=== PATIENT | female | born 1995 | race Caucasian/White ===

== ENCOUNTER 2016-12-21 23:35 | Emergency (ER) | payer SELFPAY ==
[~2016-12-21] VITALS: Ht 162.6 cm; Wt 92.1 kg
[~2016-12-21 23:35] MED LIST: FLUT12AE2 IH; MONT10TA9 PO; VENTOLIN HFA8 GM IH
[2016-12-21 23:45] VITALS: BP 104/54
[2016-12-22] MEDS ORDERED: FLUORESCEIN OPHTH TEST STRIP. ONE (00:42)
[2016-12-22] MEDS ORDERED: PROPARACAINE 0.5% OPHTH SOLUTION 15ML BOTTLE. ONE (00:43)
[2016-12-22] MEDS ORDERED: AZITHROMYCIN 250 MG TABLET. ONE (00:55)
[2016-12-22] MEDS ORDERED: ERYTHROMYCIN 0.5% OPHTH OINTMENT 1GM TUBE. ONE (00:56)
[2016-12-22] MEDS ORDERED: ERYTHROMYCIN 0.5% OPHTH OINTMENT 1GM TUBE. OS ONE ×2 (01:00→01:15)
[2016-12-22] MEDS ORDERED: ERYT1OIN6 LEFTEYE (01:10)
--- NOTE | 2016-12-22 01:10 | PHYS DOC ---
Past Medical History Past Medical History: Anxiety, Asthma, Other Additional Past Medical Histor: ADHD, BIPOLAR, PERSONALITY DISORDER Past Surgical History: Tonsillectomy Alcohol Use: Occasionally Drug Use: None Adult General Chief Complaint Chief Complaint: EYE PROBLEMS HPI HPI Patient is a 21 year old female who presents with complaint of left eye redness and swelling. Patient states that her symptoms started yesterday. Patient states that she was scratched twice in her left eye by her dog. Patient states that she started getting thick yellow drainage from the left eye starting today. Patient states that she is having burning pain in the eye and has had blurry vision. Patient denies loss of vision, fever, or any other injuries. Patient has not taken any medications to help with her symptoms at this time. Patient also states that she was told by her boyfriend that she may have been exposed to a sexually transmitted infection. The patient states that she was told her boyfriend had sexual intercourse with a female that tested positive for chlamydia. Patient denies any lower abdominal pain or abnormal vaginal discharge. Review of Systems Review of Systems Constitutional: Denies fever or chills [] Eyes: Left eye swelling, drainage, redness, and pain [] HENT: Denies nasal congestion or sore throat [] Respiratory: Denies cough or shortness of breath [] Cardiovascular: Denies chest pain or edema [] GI: Denies abdominal pain, nausea, vomiting, bloody stools or diarrhea [] : Denies dysuria or hematuria [] Musculoskeletal: Denies back pain or joint pain [] Integument: Denies rash or skin lesions [] Neurologic: Denies headache, focal weakness or sensory changes [] Current Medications Current Medications Current Medications Medications (Trade) Dose Ordered Sig/Carrie Start Time Stop Time Status Last Admin Dose Admin Azithromycin (Zithromax) 250 mg STK-MED ONCE 12/22/16 00:55 12/22/16 00:56 DC Erythromycin (Romycin) 0.25 inch 1X ONCE 12/22/16 01:15 12/22/16 01:18 DC Fluorescein Sodium (Ful-Odalys) 1 strip 1X ONCE 12/22/16 01:15 12/22/16 01:18 DC 12/22/16 00:30 1 STRIP Proparacaine HCl (Alcaine) 1 drop 1X ONCE 12/22/16 01:15 12/22/16 01:18 DC 12/22/16 00:30 1 DROP Allergies Allergies Allergies Coded Allergies Type Severity Reaction Last Updated Verified diphenhydramine Allergy Severe swelling 03/17/16 Yes pepper Allergy Severe swelling 03/17/16 Yes latex Allergy Intermediate rash 03/17/16 Yes Physical Exam Physical Exam Constitutional: Alert, afebrile, no acute distress. [] HENT: Normocephalic, atraumatic, bilateral external ears normal, oropharynx moist, no oral exudates, nose normal. [] Eyes: PERRLA, EOMI, left conjunctival swelling and erythema, thick yellow discharge present, exam under fluoroscopy seemed eye with Wood's lamp shows no evidence of corneal abrasion. [] Neck: Normal range of motion, no tenderness, supple, no stridor. [] Cardiovascular:Heart rate regular rhythm, no murmur [] Lungs & Thorax: Bilateral breath sounds clear to auscultation [] Abdomen: Bowel sounds normal, soft, no tenderness, no masses, no pulsatile masses. [] Skin: Warm, dry, no erythema, no rash. [] Back: No tenderness, no CVA tenderness. [] Extremities: No tenderness, no cyanosis, no clubbing, ROM intact, no edema. [] Neurologic: Alert and oriented X 3, normal motor function, normal sensory function, no focal deficits noted. [] Current Patient Data Vital Signs Vital Signs Date Time Temp Pulse Resp B/P (MAP) Pulse Ox O2 Delivery O2 Flow Rate FiO2 12/21/16 23:45 97.9 81 16 98 Room Air 97.9 EKG EKG Not performed [] Radiology/Procedures Radiology/Procedures Not performed [] Course & Med Decision Making Course & Med Decision Making Pertinent Labs and Imaging studies reviewed. (See chart for details) The patient was treated with erythromycin ophthalmic ointment for bacterial conjunctivitis. The patient was also prophylactically treated with azithromycin for possible chlamydia exposure. Advised to abstain from any sexual intercourse until both her and her partner have been treated and fully symptom-free. Advise follow-up with Dr. Howell of ophthalmology in 3-4 days of symptoms are not improving and return to emergency department for any worsening symptoms. Patient voiced understanding and in agreement with treatment plan. Dragon Disclaimer Dragon Disclaimer This electronic medical record was generated, in whole or in part, using a voice recognition dictation system. Departure Departure Impression: Primary Impression: Bacterial conjunctivitis of left eye Additional Impression: Exposure to STD Disposition: 01 HOME, SELF-CARE Condition: IMPROVED Referrals: ANSLEY BAJWA MD (PCP) PARISA HOWELL MD Patient Instructions: Bacterial Conjunctivitis, Sexually Transmitted Disease, [id number] Additional Instructions: Continue the erythromycin eye ointment for the next 7 days. Follow-up with Dr. Howell of ophthalmology if symptoms are not improving in the next 3-4 days. Abstain from any sexual intercourse until you and your partner are completely symptom-free. Return to the emergency department for any worsening symptoms. Scripts Erythromycin Base (Erythromycin) 1 Gm Oint...g. 0.5 INCH LEFTEYE QID for 7 Days, #1 TUBE Prov: KASSANDRA NAIR MD 12/22/16 Problem Qualifiers KASSANDRA NAIR MD Dec 22, 2016 01:10
[2016-12-22] MEDS ORDERED: FLUORESCEIN OPHTH TEST STRIP. OS ONE (01:15)
[2016-12-22] MEDS ORDERED: PROPARACAINE 0.5% OPHTH SOLUTION 15ML BOTTLE. OS ONE (01:15)
== END 2016-12-22 01:18 | disposition home or self-care (01) ==
LOC: ER 23:35
DX: H10.89 Other conjunctivitis (principal); F90.9 Attention-deficit hyperactivity disorder, unspecified type; F31.9 Bipolar disorder, unspecified; F60.9 Personality disorder, unspecified; J45.909 Unspecified asthma, uncomplicated; Z91.040 Latex allergy status; Z88.8 Allergy status to other drugs, medicaments and biological substances; Z91.018 Allergy to other foods
CPT/HCPCS: 99283

== ENCOUNTER 2017-01-19 18:22 | Emergency (ER) | payer SELFPAY ==
[~2017-01-19 18:22] MED LIST changes: +ERYT1OIN6 LEFTEYE
[2017-01-19 18:30] VITALS: BP 110/55
[2017-01-19 18:40] LABS: BILIRUBIN,URINE NEGATIVE (NEG); GLUCOSE,URINE NEGATIVE (NEG); NITRITE,URINE NEGATIVE (NEG); PH,URINE 7.5; PROTEIN,URINE NEGATIVE (NEG-TRACE); UROBILINOGEN,URINE 0.2 mg/dL (0.2 mg/dL)
[2017-01-19 18:47] LABS: BACTERIA,URINE FEW /HPF (0-FEW); RBC,URINE OCC /HPF (0-2); SQUAMOUS EPITHELIAL CELL,UR MANY /LPF; WBC,URINE 20-40 /HPF (0-4)
--- NOTE | 2017-01-19 19:00 | PHYS DOC ---
Past Medical History Past Medical History: Anxiety, Asthma, Other Additional Past Medical Histor: ADHD, BIPOLAR, PERSONALITY DISORDER Past Surgical History: Tonsillectomy Alcohol Use: None Drug Use: None Adult General Chief Complaint Chief Complaint: ABDOMINAL PAIN IN HPI HPI Patient is a 21 year old female presents with abdominal pelvic burning since 2pm. pain started while sitting at work. no n/v/d, no fever, no vag discharge, no dysuria. no vaginal bleeding. pt is . she took home preg test. approx 3 months , has not seen OB yet. last miscarriage was 7 mo ago Review of Systems Review of Systems Constitutional: Denies fever or chills [] Eyes: Denies change in visual acuity, redness, or eye pain [] HENT: Denies nasal congestion or sore throat [] Respiratory: Denies cough or shortness of breath [] Cardiovascular: No additional information not addressed in HPI [] GI: + abdominal pain, no nausea, vomiting, bloody stools or diarrhea [] : Denies dysuria or hematuria [] Musculoskeletal: Denies back pain or joint pain [] Integument: Denies rash or skin lesions [] Neurologic: Denies headache, focal weakness or sensory changes [] Endocrine: Denies polyuria or polydipsia [] Allergies Allergies Allergies Coded Allergies Type Severity Reaction Last Updated Verified diphenhydramine Allergy Severe swelling 03/17/16 Yes pepper Allergy Severe swelling 03/17/16 Yes latex Allergy Intermediate rash 03/17/16 Yes Physical Exam Physical Exam Constitutional: Well developed, well nourished, no acute distress, non-toxic appearance. [] HENT: Normocephalic, atraumatic, bilateral external ears normal, oropharynx moist, no oral exudates, nose normal. [] Eyes: PERRLA, EOMI, conjunctiva normal, no discharge. [] Neck: Normal range of motion, no tenderness, supple, no stridor. [] Cardiovascular:Heart rate regular rhythm, no murmur [] Lungs & Thorax: Bilateral breath sounds clear to auscultation [] Abdomen: Bowel sounds normal, soft, + tenderness suprapubic and left>right LQ, no masses, no pulsatile masses. : pelvic exam showed white discharge, no bleeding. cervix is closed. no fullness on right or left bimanual Skin: Warm, dry, no erythema, no rash. [] Back: No tenderness, no CVA tenderness. [] Extremities: No tenderness, no cyanosis, no clubbing, ROM intact, no edema. [] Neurologic: Alert and oriented X 3, normal motor function, normal sensory function, no focal deficits noted. [] Psychologic: Affect normal, judgement normal, mood normal. [] Current Patient Data Vital Signs Vital Signs Date Time Temp Pulse Resp B/P (MAP) Pulse Ox O2 Delivery O2 Flow Rate FiO2 01/19/17 18:30 76 18 110/55 (73) 99 Room Air Lab Values Laboratory Tests Test 01/19/17 17:39 01/19/17 18:28 01/19/17 18:40 POC Urine HCG, Qualitative Hcg positive (Negative) Urine Collection Type Unknown Urine Color Yellow Urine Clarity Cloudy Urine pH 7.5 Urine Specific [place] 1.010 Urine Protein Negative mg/dL (NEG-TRACE) Urine Glucose (UA) Negative mg/dL (NEG) Urine Ketones (Stick) Negative mg/dL (NEG) Urine Blood Negative (NEG) Urine Nitrite Negative (NEG) Urine Bilirubin Negative (NEG) Urine Urobilinogen Dipstick 0.2 mg/dL (0.2 mg/dL) Urine Leukocyte Esterase Large (NEG) Urine RBC Occ /HPF (0-2) Urine WBC 20-40 /HPF (0-4) Urine Squamous Epithelial Cells Many /LPF Urine Bacteria Few /HPF (0-FEW) Urine Mucus Slight /LPF Maternal Serum HCG Beta Subunit 22254 mIU/mL (0-5) H Microbiology 01/19/17 Wet Prep - Final, Complete EKG EKG [] Radiology/Procedures Radiology/Procedures [] Course & Med Decision Making Course & Med Decision Making Pertinent Labs and Imaging studies reviewed. (See chart for details) pt has +uti and US shows viable fetus at 10weeks. she will f/u with previous OB she has clue cells on wet prep and will have to f/u with ob for treat ment in 2 weeks Eugenie Disclaimer Dragon Disclaimer This electronic medical record was generated, in whole or in part, using a voice recognition dictation system. Departure Departure Impression: Primary Impression: UTI (urinary tract infection) Disposition: 01 HOME, SELF-CARE Condition: STABLE Referrals: ANSLEY BAJWA MD (PCP) Patient Instructions: Urinary Tract Infection, [id number] Additional Instructions: start keflex for infection. return if symptoms worsen. zofran for nausea and tylenol for pain. call your previous OB for further treatment Scripts Ondansetron (ZOFRAN ODT) 4 Mg Tab.rapdis 1 TAB SL Q8HRS, #15 TAB Prov: TAYO MARIN MD 01/19/17 Cephalexin (KEFLEX) 250 Mg Capsule 1 CAP PO QID, #40 CAP Prov: TAYO MARIN MD 01/19/17 TAYO MARIN MD Jan 19, 2017 19:00
--- NOTE | 2017-01-19 20:34 | RAD ---
First trimester uterine ultrasound HISTORY: Left lower quadrant pain, , previous miscarriages COMPARISON: None FINDINGS: Multiple transabdominal as well as transvaginal sonographic images of the uterus are submitted. Uterus measured 8.7 x 8.7 x 6 cm. No free fluid is demonstrated. Right ovary measured 3. 2 x 2 by 1.7 cm. Left ovary measured 2.8 x 1.6 x 1.4 cm. There is normal low resistance vascularity of both ovaries. There is a single intrauterine gestational sac with identifiable yolk sac and pole. There is detectable cardiac activity 169 bpm. Larwill-rump length measurement of 4 cm corresponds with 10 weeks 6 days. Adjusted ultrasound age ultrasound age is 10 weeks 6 days with estimated delivery date of 08/11/2017. LMP age is 12 weeks 3 days with estimated delivery date of 07/31/2017. IMPRESSION: 1. There is a single viable intrauterine . The adjusted ultrasound age is 10 weeks 6 days with estimated delivery date of 08/11/2017. Electronically signed by: Jeffrey Ralph MD (01/19/2017 8:30 PM) [facility]
[2017-01-19] MEDS ORDERED: CEPH-263 PO (21:14)
[2017-01-19] MEDS ORDERED: ONDA4TAB10 SL (21:16)
== END 2017-01-19 21:25 | disposition home or self-care (01) ==
LOC: ER 18:22
DX: O23.41 Unspecified infection of urinary tract in pregnancy, first trimester (principal); Z3A.12 12 weeks gestation of pregnancy; O99.341 Other mental disorders complicating pregnancy, first trimester; F31.9 Bipolar disorder, unspecified; F90.9 Attention-deficit hyperactivity disorder, unspecified type; O99.511 Diseases of the respiratory system complicating pregnancy, first trimester; J45.909 Unspecified asthma, uncomplicated; F41.9 Anxiety disorder, unspecified; Z91.040 Latex allergy status; Z88.8 Allergy status to other drugs, medicaments and biological substances; Z91.018 Allergy to other foods
CPT/HCPCS: 36415; 76801; 81001; 81025; 84702; 86900; 86901; 87491; 87591; 99285; Q0111

== ENCOUNTER 2018-02-28 01:58 | Emergency (ER) | payer SELFPAY ==
[~2018-02-28] VITALS: Ht 162.6 cm; Wt 88.9 kg
[~2018-02-28 01:58] MED LIST changes: +CEPH-263 PO; +ONDA4TAB10 SL
[2018-02-28] MEDS: ONDANSETRON PF 4 MG/2 ML VIAL. IV ONE (02:45)
[2018-02-28] MEDS: fentaNYL PF VIAL 100 MCG/2 ML VIAL IV ONE (02:46)
[2018-02-28 02:50] LABS: BASO # 0.1 x10^3/uL (0.0-0.2); BASO % 1 % (0-3); EOS # 0.2 x10^3/uL (0.0-0.7); EOS % 2 % (0-3); HEMATOCRIT 41.7 % (36.0-47.0); HEMOGLOBIN 14.3 g/dL (12.0-15.5); LYMPH # 3.9 x10^3/uL (1.0-4.8); LYMPH % 31 % (24-48); MEAN CORPUSCULAR HEMOGLOBIN 31 pg (25-35); MEAN CORPUSCULAR HGB CONC 34 g/dL (31-37); MEAN CORPUSCULAR VOLUME 90 fL (79-100); MONO # 0.9 x10^3/uL (0.0-1.1); MONO % 7 % (0-9); NEUT # 7.6 x10^3uL (1.8-7.7); NEUT % 60 % (31-73); PLATELET COUNT 284 x10^3/uL (140-400); RED BLOOD COUNT 4.63 x10^6/uL (3.50-5.40); RED CELL DISTRIBUTION WIDTH 13.7 % (11.5-14.5); WHITE BLOOD COUNT 12.7 x10^3/uL (4.0-11.0)
[2018-02-28 03:04] LABS: CALCIUM 9.5 mg/dL (8.5-10.1); CREATININE 0.9 mg/dL (0.6-1.0); GFR 77.6; POTASSIUM 3.7 mmol/L (3.5-5.1)
[2018-02-28 03:09] LABS: ALBUMIN 4.1 g/dL (3.4-5.0); ALBUMIN/GLOBULIN RATIO 1.1 (1.0-1.7); PREG TEST PT QUAL POSITIVE (NEG); TOTAL BILIRUBIN 0.4 mg/dL (0.2-1.0); TOTAL PROTEIN 7.8 g/dL (6.4-8.2)
--- NOTE | 2018-02-28 05:07 | RAD ---
INDICATION: ABDOMINAL PAIN FOLLOWED BY NAUSEA X'S 30 MINUTES. COMPARISON: January 19, 2017 TECHNIQUE: Grayscale and color ultrasound images uterus and adnexa. Transabdominal and transvaginal images obtained. FINDINGS: Uterus: 79 x 60 x 43 mm. Endometrial Stripe: 20 mm. Right Ovary: 35 x 24 x 20 mm. Left Ovary: 27 x 19 x 18 mm. Vascular flow identified to bilateral ovaries. Complex structure suspected at the right adnexa measuring 24 x 23 mm. There are some cystic structures near the cervix which could be from nabothian cysts. IMPRESSION: 1. Vascular flow seen to the bilateral ovaries. 2. There is suggestion of a heterogenous lesion at the right adnexa. Could be from causes such as hemorrhagic cyst or endometrioma but given that there is no intrauterine identified continued follow-up will be needed to ensure that there is not an alternative cause such as ectopic . 3. Thickening of the endometrial stripe without intrauterine seen at this time. Electronically signed by: Bob Camejo MD (02/28/2018 5:04 AM) [facility]
[2018-02-28 05:25] VITALS: BP 111/59
== END 2018-02-28 05:40 | disposition home or self-care (01) ==
LOC: ER 01:58
DX: O26.891 Other specified pregnancy related conditions, first trimester (principal); R10.11 Right upper quadrant pain; R10.12 Left upper quadrant pain; Z3A.00 Weeks of gestation of pregnancy not specified
CPT/HCPCS: 36415; 76801; 76817; 80053; 83690; 84702; 84703; 85025; 96374; 96375; 99285; J2405; J3010